=== PATIENT | female | born 1990 | race Asian ===

== ENCOUNTER 2019-08-09 04:27 | Emergency (ER) | payer BC ==
[~2019-08-09] VITALS: Ht 157.5 cm; Wt 70.8 kg
[2019-08-09 04:35] VITALS: Ht 157.5 cm; Wt 70.8 kg
[2019-08-09 05:02] LABS: BASOPHIL % 0.5 % (0-2); PLATELET COUNT 209 x10^3mcL (130-400); RED CELL DISTRIBUTION WIDTH 14.4 % (11.5-14.5)
[2019-08-09 05:05] LABS: UA SPECIFIC GRAVITY 1.015 (1.005-1.035); urine erythrocyte NEGATIVE (NEGATIVE)
[2019-08-09 05:06] LABS: microscopic required? YES
[2019-08-09 05:20] LABS: CALCIUM 9.5 mg/dL (8.5-10.1); CARBON DIOXIDE 25.7 mmol/L (21-32); CHLORIDE SERUM 106 mmol/L (98-107); CREATININE SERUM 0.5 mg/dL (0.6-1.0); GFR1 > 60 mL/min; GLUCOSE SERUM 84 mg/dL (74-106); POTASSIUM SERUM 3.9 mmol/L (3.5-5.1); SODIUM SERUM 143 mmol/L (136-145)
[2019-08-09 05:22] LABS: ALKALINE PHOSPHATASE 88 U/L (46-116); ALT/SGPT 54 U/L (14-59); AST/SGOT 21 U/L (15-37); BILIRUBIN TOTAL 0.3 mg/dL (0.20-1.00); LACTIC DEHYDROGENASE (LDH) 147 U/L (100-190); TOTAL PROTEIN, SERUM 7.1 g/dL (6.4-8.2)
[2019-08-09 07:06] VITALS: BP 121/61
== END 2019-08-09 07:06 | disposition short-term general hospital (02) ==
LOC: ED 04:27
PROVIDERS: Emergency Medicine
DX: O26.893 Other specified pregnancy related conditions, third trimester (principal); O9A.213 Injury, poisoning and certain other consequences of external causes complicating pregnancy, third trimester; T46.3X5A Adverse effect of coronary vasodilators, initial encounter; Z3A.34 34 weeks gestation of pregnancy; Z88.2 Allergy status to sulfonamides; Y92.89 Other specified places as the place of occurrence of the external cause
CPT/HCPCS: 36415